=== PATIENT | female | born 1985 | race Caucasian/White ===

== ENCOUNTER 2021-04-21 12:05 | Emergency (ER) | payer BC, OTHER ==
[~2021-04-21] VITALS: Ht 157.5 cm; Wt 60.3 kg
[2021-04-21] MEDS ORDERED: LITHIUM CARBON300 MG PO (12:26)
[2021-04-21 13:21] LABS: URINE BILIRUBIN NEGATIVE (Negative); URINE BLOOD NEGATIVE (Negative); URINE CLARITY CLEAR; URINE COLOR YELLOW; URINE GLUCOSE-RANDOM* NEGATIVE (Negative); URINE KETONES NEGATIVE (Negative); URINE LEUKOCYTES-REFLEX NEGATIVE (Negative); URINE NITRITE-REFLEX NEGATIVE (Negative); URINE PROTEIN (DIPSTICK) NEGATIVE (Negative); URINE SPECIFIC GRAVITY 1.015 (1.005-1.035); URINE UROBILINOGEN 0.2 E.U./dl (0.2-1.0)
[2021-04-21 13:28] LABS: ABSOLUTE NEUTROPHILS 3.5 thou/uL (1.4-8.2); BASOPHILS 1.4 % (0.0-2.0); EOSINOPHILS 1.2 % (0.0-3.0); HEMATOCRIT 39.7 % (37.0-47.0); HEMOGLOBIN 13.4 gm/dL (12.0-15.0); LYMPHOCYTES 24.8 % (24.0-44.0); MCH 32.1 pg (26.0-34.0); MCHC 33.7 g/dL (28.0-37.0); MCV 95.2 fL (80.0-100.0); MONOCYTES 4.9 % (1.0-8.0); PLATELET COUNT 273 thou/uL (150-400); POLYS 67.7 % (36.0-66.0); RBC 4.17 mil/uL (4.20-5.00); WBC 5.2 thou/uL (4.0-11.0)
[2021-04-21 13:34] LABS: CALCIUM 8.9 mg/dL (8.5-10.1); CREATININE 0.7 mg/dL (0.6-1.0); POTASSIUM 3.9 mmol/L (3.5-5.1)
[2021-04-21 13:40] LABS: ALBUMIN 4.2 g/dL (3.4-5.0); TOTAL BILIRUBIN 0.5 mg/dL (0.2-1.0); TOTAL PROTEIN 7.2 g/dL (6.4-8.2)
[2021-04-21 15:27] LABS: MAGNESIUM 1.9 mg/dL (1.8-2.4)
[2021-04-21 18:37] VITALS: BP 98/52
--- NOTE | 2021-04-23 07:32 | EKG ---
[place] [address] [facility] [place] [employer] [place] [address] ELECTROCARDIOGRAM REPORT Name: BRANDON ANDREWS Room #: [facility]#: [id number] Admission: 04/21/21 Attend Phys: Discharge: 04/21/21 Date of : 87 Report #: [id number] [facility] ED Test Date: 2021-04-21 Test Time: 13:52:30 Pat Name: BRANDON ANDREWS Department: Room: Gender: F [employer] Typist: JOHN : 1985 Requested By: Mirna Garber Order Number: [id number] MD: Matthew Pruitt Measurements Intervals [place] Rate: 94 P: 81 CA: 140 QRS: 57 QRSD: 128 T: 58 QT: 379 QTc: 474 Interpretive Statements Sinus rhythm IVCD, consider atypical RBBB No previous ECG available for comparison Electronically Signed On 04-23-2021 7:32:03 CDT by Matthew Pruitt [email or web address] <ELECTRONICALLY SIGNED> By: Matthew Pruitt MD, [facility] 04/23/21 0732 1352 1352 Matthew Pruitt MD, FACC /EPI
== END 2021-04-21 18:39 | disposition home or self-care (01) ==
LOC: ER 12:05
PROVIDERS: Nurse Practitioner Family
DX: I47.1 Supraventricular tachycardia (principal); Z20.822 Contact with and (suspected) exposure to COVID-19; E03.9 Hypothyroidism, unspecified; R10.815 Periumbilic abdominal tenderness; Z88.0 Allergy status to penicillin; Z88.5 Allergy status to narcotic agent